=== PATIENT | male | born 1960 | race Caucasian/White ===

== ENCOUNTER 2018-01-19 06:54 | Outpatient (CLI) | payer OTHER ==
[2018-01-19] MEDS ORDERED: IOPAMIDOL-300 100 ML VIAL ONE (07:47)
[2018-01-19] MEDS ORDERED: IOPAMIDOL-300 100 ML VIAL IVP ONE (09:50)
--- NOTE | 2018-01-19 09:52 | CT Report ---
CT CHEST WITH CONTRAST: 01/19/2018 CLINICAL INDICATION: COPD. TECHNIQUE: Axial CT images of the chest were obtained with 80 mL Isovue 300 intravenously. COMPARISON: No previous CT is available for comparison. FINDINGS: The heart and great vessels are unremarkable. No hilar or mediastinal lymphadenopathy is appreciated. The lungs are clear. No effusion or pneumothorax is seen. No bronchiectasis is appreciated. No effusion or pneumothorax is present. Limited evaluation of upper abdominal structures demonstrates normal adrenal glands. Osseous structures demonstrate degenerative changes. IMPRESSION: NORMAL CT OF THE CHEST WITH CONTRAST. CT DOSE REDUCTION STATEMENT In accordance with CT protocol optimization, one or more of the following dose reduction techniques were utilized for this exam: automated exposure control, adjustment of mA and/or KV based on patient size, or use of iterative reconstructive technique. TD: 01/19/2018 09:51
== END 2018-01-19 06:55 | disposition home or self-care (01) ==
LOC: DI 06:54
PROVIDERS: ATTEND Hospitalist
DX: J44.9 Chronic obstructive pulmonary disease, unspecified (principal)
CPT/HCPCS: 71260; Q9967

== ENCOUNTER 2019-09-22 10:52 | Outpatient (CLI) | payer OTHER ==
[2019-09-22] MEDS ORDERED: REGADENOSON 0.4 MG/5 ML SYRINGE IVP ONE ×2 (12:40→14:56)
[2019-09-22] MEDS ORDERED: AMINOPHYLLINE 250 MG/10 ML VIAL ONE (12:41)
--- NOTE | 2019-09-22 15:46 | Nuclear Medicine Report ---
Reason: DYSNEA ON EXERTION Procedure Date: 09/22/2019 Accession Number: [id number] / [id number] Procedure: NM - Myocardial Perfusion STR/RST CPT Code: Final Report FULL RESULT: EXAM: MYOCARDIAL PERFUSION STRESS AND REST EXAM DATE: 09/22/2019 03:12 PM. CLINICAL HISTORY: Dyspnea on exertion. COMPARISON: CHEST W/ 01/19/2018 8:06 AM. TECHNIQUE: Patient given 9 mCi technetium 99m sestamibi IV for the rest portion of the study. Non-gated cardiac SPECT scintigraphy of the heart performed with multiplanar reformats. After an appropriate delay, patient given 0.4 mg Lexiscan for pharmacologic stress. Next, the patient given 42.6 mCi technetium 99m sestamibi IV. Cardiac gated SPECT scintigraphy performed of the heart with multiplanar reformats, wall motion analysis, and left ventricular ejection fraction estimation. FINDINGS: There is a large focus marked decreased activity in the apex, fixed on stress and rest. There is a large region of moderate decreased activity in the septum, fixed on stress and rest. No significant reversible changes are seen. There is moderate septal hypokinesis and apical akinesis. Left ventricular ejection fraction estimated at 50%. IMPRESSION: 1. 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 2. Septal hypokinesis and apical akinesis. 3. Left ventricular ejection fraction estimated at 50%. 4. No reversible ischemia seen. RADIA
--- NOTE | 2019-09-22 16:49 | CARDIAC PROCEDURE NOTE ---
DATE OF SERVICE: 09/22/2019 Physician: Marlene Carty MD, [facility] INDICATION: Dyspnea on exertion. CARDIAC RISK FACTORS: Male gender, obesity, hypertension, hyperlipidemia, ex- smoker. PROCEDURE: After signing informed consent, the patient underwent a Lexiscan pharmaceutical stress test with nuclear myocardial perfusion imaging. RESTING HEART RATE: 74. PEAK HEART RATE: 109. RESTING BLOOD PRESSURE: 137/74. PEAK BLOOD PRESSURE: 166/80. Lexiscan was infused per protocol. The patient developed flushing, a brief headache, brief shortness of breath, no chest pain or nausea. Oxyf=gen saturation was >97% on room air throughout the test. RESTING EKG: Normal sinus rhythm, left bundle branch block. EKG AT PEAK: Persistent left bundle branch block, unable to comment on ST segments or T waves therefore. SUMMARY 1. Abnormal resting EKG with findings of left bundle branch block. 2. Cannot comment on ischemic changes in the presence of left bundle branch block, during this pharmaceutical stress test. 3. The patient did have brief shortness of breath during pharmaceutical testing. 4. Nuclear images reported separately. cc: Jaylen Monterroso MD TD: 09/22/2019 16:25 MTDD
== END 2019-09-22 10:53 | disposition home or self-care (01) ==
LOC: DI 10:52
PROVIDERS: ATTEND Internal Medicine
DX: R07.9 Chest pain, unspecified (principal); R06.09 Other forms of dyspnea; I44.7 Left bundle-branch block, unspecified
CPT/HCPCS: 78452; 93017; A9500; J2785

== ENCOUNTER 2019-10-04 14:31 | Emergency (ER) | payer OTHER ==
[2019-10-04 14:56] LABS: BASOPHILS % (AUTO) 0.5 %; EOSINOPHILS # (AUTO) 0.1 10^3/uL (0.0-0.7); EOSINOPHILS % (AUTO) 1.7 %; HGB - HEMOGLOBIN 13.2 g/dL (14.0-18.0); LYMPHOCYTES # (AUTO) 1.1 10^3/uL (1.5-3.5); LYMPHOCYTES % (AUTO) 13.5 %; MEAN CORPUSCULAR HEMOGLOBIN 30.6 pg (27.0-31.0); MEAN CORPUSCULAR HGB CONC 33.1 g/dL (32.0-36.0); MEAN CORPUSCULAR VOLUME 92.4 fL (80.0-94.0); MONOCYTES # (AUTO) 0.4 10^3/uL (0.0-1.0); MONOCYTES % (AUTO) 5.3 %; NEUTROPHILS # (AUTO) 6.4 10^3/uL (1.5-6.6); NEUTROPHILS % (AUTO) 78.3 %; PLT - PLATELET COUNT 201 10^3/uL (130-450); RED BLOOD COUNT 4.32 10^6/uL (4.70-6.10); WHITE BLOOD COUNT 8.2 x10^3/uL (4.8-10.8)
[2019-10-04 15:15] LABS: ALBUMIN 4.4 g/dL (3.2-5.5); ALBUMIN/GLOBULIN RATIO 1.6 (1.0-2.2); BILIRUBIN,TOTAL 0.8 mg/dL (0.2-1.0); CALCIUM 9.5 mg/dL (8.5-10.3); TOTAL PROTEIN 7.2 g/dL (6.7-8.2)
--- NOTE | 2019-10-04 15:16 | XRAY Report ---
Reason: dyspnea Procedure Date: 10/04/2019 Accession Number: [id number] / [id number] Procedure: XR - Chest 2 View X-Ray CPT Code: 03747 Final Report FULL RESULT: EXAM: CHEST RADIOGRAPHY EXAM DATE: 10/04/2019 02:50 PM. CLINICAL HISTORY: Dyspnea. COMPARISON: CHEST 2 VIEW PA/LAT 12/14/2015 11:36 AM. TECHNIQUE: 2 views. FINDINGS: Lungs/Pleura: Chronic hyperexpansion with flattened diaphragm and coarse lung markings typical for COPD. No localized infiltrate, consolidation, effusion, or pneumothorax. Mediastinum: Heart and mediastinal contours are unremarkable. Upper lobe vessels not distended. Other: Degenerative changes. IMPRESSION: No acute disease. RADIA
--- NOTE | 2019-10-04 15:31 | ED Physician Documentation ---
PD HPI URI - Stated complaint Stated Complaint: SOA - Chief complaint Chief Complaint: Resp - History obtained from History obtained from: Patient (59-year-old gentleman with his history of COPD who for the last 6 months has had daily productive cough with green sputum and shortness of breath. No fevers. He has been short of breath. No pedal edema.) Review of Systems Constitutional: denies: Fever, Chills Cardiac: denies: Chest pain / pressure Respiratory: reports: Dyspnea, Cough, Wheezing PD PAST MEDICAL HISTORY - Past Medical History Cardiovascular: Hypertension, High cholesterol GI: GERD - Past Surgical History Past Surgical History: No - Present Medications Home Medications: Ambulatory Orders Medication Instructions Recorded Confirmed Albuterol Sulf [Ventolin Hfa 2 puffs INH Q4HR #1 inhaler 12/14/15 Inhaler] Inhaler, Assist Devices [Aerovent 1 each MC Q4HR PRN #1 spacer 12/14/15 Plus] Azithromycin [Zithromax] 1 tab PO DAILY #6 tablet 10/04/19 predniSONE [Deltasone] 60 mg PO DAILY 5 Days #15 tablet 10/04/19 - Allergies Allergies/Adverse Reactions: Allergies Allergy/AdvReac Type Severity Reaction Status Date / Time Penicillins Allergy Anaphylaxis Verified 10/04/19 14:40 - Social History Does the pt smoke?: No Smoking Status: Never smoker Does the pt drink ETOH?: No Does the pt have substance abuse?: No - Immunizations Immunizations are current?: Yes - POLST Patient has POLST: No PD ED PE NORMAL - Vitals Vital signs reviewed: Yes - General General: Alert and oriented X 3, No acute distress - HEENT HEENT: PERRL, EOMI - Neck Neck: Supple, no meningeal sign, No bony TTP - Cardiac Cardiac: RRR, No murmur - Respiratory Respiratory: No respiratory distress, Other (Mild rhonchi at the bases, nonlabored without active wheezing.) - Abdomen Abdomen: Non tender - Extremities Extremities: No edema, No calf tenderness / cord - Neuro Neuro: Alert and oriented X 3, Normal speech Results - Vitals Vitals: Vital Signs - 24 hr 10/04/19 14:35 Temperature 37.2 C Heart Rate 104 H Respiratory 18 Rate Blood Pressure 148/86 H O2 Saturation 95 Oxygen O2 Source Room air - EKG (time done) 1455 Rate: Rate (enter#) (91) Rhythm: NSR Intervals: LBBB Compare to prior EKG: Unchanged from prior EKG (Per stress test report dated 09/22/2019 the left bundle branch block is old) Computer interpretation: Agree with computer - Labs Labs: Laboratory Tests 10/04/19 10/04/19 10/04/19 14:50 14:50 14:50 WBC 8.2 RBC 4.32 L Hgb 13.2 L Hct 39.9 L MCV 92.4 MCH 30.6 MCHC 33.1 RDW 13.0 Plt Count 201 MPV 10.0 Neut # (Auto) 6.4 Lymph # (Auto) 1.1 L [place] # (Auto) 0.4 Eos # (Auto) 0.1 Baso # (Auto) 0.0 Absolute Nucleated RBC 0.00 Nucleated RBC % 0.0 D-Dimer 241.5 Sodium 140 Potassium 4.0 Chloride 103 Carbon Dioxide 26 Anion Gap 11.0 BUN 18 Creatinine 1.0 Estimated GFR (MDRD) 77 L Glucose 110 H Calcium 9.5 Total Bilirubin 0.8 AST 26 ALT 41 Alkaline Phosphatase 45 Troponin I High Sens Total Protein 7.2 Albumin 4.4 Globulin 2.8 Albumin/Globulin Ratio 1.6 Lipase 46 10/04/19 14:54 WBC RBC Hgb Hct MCV MCH MCHC RDW Plt Count MPV Neut # (Auto) Lymph # (Auto) [place] # (Auto) Eos # (Auto) Baso # (Auto) Absolute Nucleated RBC Nucleated RBC % D-Dimer Sodium Potassium Chloride Carbon Dioxide Anion Gap BUN Creatinine Estimated GFR (MDRD) Glucose Calcium Total Bilirubin AST ALT Alkaline Phosphatase Troponin I High Sens 14.3 Total Protein Albumin Globulin Albumin/Globulin Ratio Lipase - Rads (name of study) 2v chest Radiology: EMP read contemporaneously (NAD) PD MEDICAL DECISION MAKING - ED course ED course: 59-year-old gentleman with known COPD presents with what sounds like a longstanding exacerbation of same, he is already taking inhalers, will trial some antibiotics and steroids as well. Departure - Departure Disposition: 01 Home, Self Care Clinical Impression: Acute exacerbation of chronic bronchitis Condition: Good Record reviewed to determine appropriate education?: Yes Instructions: ED Bronchitis Asthmatic Prescriptions: Azithromycin [Zithromax] 1 tab PO DAILY #6 tablet predniSONE [Deltasone] 60 mg PO DAILY 5 Days #15 tablet Comments: Call your doctor to arrange a follow-up appointment, make the next available appointment. In the interim, return anytime if worse or if new symptoms develop. Your blood pressure was elevated today on check into the emergency department. This does not mean that you have hypertension, it is a common phenomenon to come to the emergency department and have elevated blood pressure. I recommend that you see your primary care physician within the week to have it rechecked when you are feeling better.
[2019-10-04 15:56] VITALS: BP 153/84
== END 2019-10-04 15:55 | disposition home or self-care (01) ==
LOC: ED 14:31
DX: J44.1 Chronic obstructive pulmonary disease with (acute) exacerbation (principal); I10 Essential (primary) hypertension; I44.7 Left bundle-branch block, unspecified
CPT/HCPCS: 36415; 71046; 80053; 83690; 83880; 84484; 85025; 85379; 93005; 99283; 99284

== ENCOUNTER 2020-12-01 16:16 | Emergency (ER) | payer OTHER ==
[2020-12-01] MEDS ORDERED: BUFFERED LIDOCAINE 10 ML SYRINGE SUBQ STA (16:30)
--- NOTE | 2020-12-01 16:30 | ED Physician Documentation ---
PD HPI UPPER EXT INJURY - Stated complaint Stated Complaint: right finger injury - Chief complaint Chief Complaint: Laceration - History obtained from History obtained from: Patient - History of Present Illness Location: Right, Hand Type of injury: Blunt / blow Where injury occurred: Work Timing - onset: Enter time (0800), Today Timing - duration: Hours Timing - details: Abrupt onset, Still present Improved by: Rest, Immobilization Worsened by: Moving, Palpating Associated symptoms: No: Weakness, Numbness, Tingling Contributing factors: No: Anticoagulated Similar symptoms before: Diagnosis (laceration) Recently seen: Not recently seen - Additonal information Additional information: 60-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 He has a laceration to the hand at the metacarpal phalangeal joint of the fourth digit on the right hand. He is able to move his fingers and a full range of motion has normal sensation distally. He is here for repair. Review of Systems Constitutional: denies: Fever Respiratory: denies: Cough GI: denies: Vomiting Skin: reports: Laceration (s) Musculoskeletal: reports: Extremity pain. denies: Neck pain, Back pain Neurologic: denies: Generalized weakness, Focal weakness, Numbness PD PAST MEDICAL HISTORY - Past Medical History Cardiovascular: Hypertension, High cholesterol Respiratory: Asthma, COPD GI: GERD - Past Surgical History Past Surgical History: No - Present Medications Home Medications: Ambulatory Orders Medication Instructions Recorded Confirmed Albuterol Sulf [Ventolin Hfa 2 puffs INH Q4HR #1 inhaler 12/14/15 Inhaler] Inhaler, Assist Devices [Aerovent 1 each MC Q4HR PRN #1 spacer 12/14/15 Plus] Azithromycin [Zithromax] 1 tab PO DAILY #6 tablet 10/04/19 predniSONE [Deltasone] 60 mg PO DAILY 5 Days #15 tablet 10/04/19 - Allergies Allergies/Adverse Reactions: Allergies Allergy/AdvReac Type Severity Reaction Status Date / Time Penicillins Allergy Anaphylaxis Verified 12/01/20 16:28 - Social History Does the pt smoke?: No Smoking Status: Never smoker Does the pt drink ETOH?: No Does the pt have substance abuse?: No - Immunizations Immunizations are current?: Yes - POLST Patient has POLST: No PD ED PE NORMAL - Vitals Vital signs reviewed: Yes (hypertensive ) - General General: Alert and oriented X 3, No acute distress, Well developed/nourished - HEENT HEENT: Atraumatic, PERRL, EOMI - Respiratory Respiratory: No respiratory distress - Derm Derm: Normal color, Warm and dry, No rash - Extremities Extremities: No deformity, No edema, Other (over the palmar surface of the MCP junction the tissue is torn and there is avulsed tissue as well. There is a central portion of the laceration that penetrates the dermis entirely. There is no FB in the wound. ) - Neuro Neuro: Alert and oriented X 3, medical anthropology director 2-12 intact, No motor deficit, No sensory deficit, Normal speech Eye Opening: Spontaneous Motor: Obeys Commands Verbal: Oriented GCS Score: 15 - Psych Psych: Normal mood, Normal affect Results - Vitals Vitals: Vital Signs - 24 hr 12/01/20 16:23 Temperature 36.7 C Heart Rate 97 Respiratory 22 Rate Blood Pressure 138/75 H O2 Saturation 99 Oxygen O2 Source Room air Procedures - Laceration (location) right hand Length in cm: 2.5 Wound type: Stellate, Irregular, Flap, Superficial, Clean Neurovascular status: Sensory intact, Motor intact, Vascular intact Tendon involvement: Tendon intact Anesthesia: Lidocaine 1%, With bicarb, Volume - enter ml (4) Wound preparation: Hibiclens, Irrigated copiously NS, Wound explored, To the base, Multiple flaps aligned Skin layer closure: Nylon, Dermabond, Interrupted, Size #-0 - enter number (5- 0), Sutures - enter # (3) Other: Patient tolerated well, No complications, Neurovascular intact, Dressing applied, Tetanus UTD PD MEDICAL DECISION MAKING - ED course Complexity details: reviewed old records, considered differential, d/w patient ED course: 60 y/o male with a laceration to the mcp joint of the right hand. There is a ahmadi perficial piece of skin that partially covers the wound and this is sutured over and the remainder of the laceration is covered with dermabond. Departure - Departure Disposition: 01 Home, Self Care Clinical Impression: Laceration of hand Qualifiers: Encounter type: initial encounter Foreign body presence: without foreign body Laterality: right Qualified Code(s): S61.411A - Laceration without foreign body of right hand, initial encounter Condition: Stable Instructions: ED Laceration Hand, ED Laceration Ext Skin Glue Follow-Up: VIRGINIA GLYNN MD [Primary Care Provider] - Comments: sutures should be removed in 7-10 days.
[2020-12-01 17:16] VITALS: BP 144/74
== END 2020-12-01 17:15 | disposition home or self-care (01) ==
LOC: ED 16:16
DX: S61.214A Laceration without foreign body of right ring finger without damage to nail, initial encounter (principal); W31.82XA Contact with other commercial machinery, initial encounter; Y99.0 Civilian activity done for income or pay; I10 Essential (primary) hypertension
CPT/HCPCS: 1040M; 12001; 99281; 99282

== ENCOUNTER 2020-12-21 15:54 | Outpatient (CLI) | payer OTHER ==
[2020-12-21 16:38] VITALS: BP 155/77
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
== END 2020-12-21 15:55 | disposition home or self-care (01) ==
LOC: SC 15:54
PROVIDERS: ATTEND Nurse Practitioner Family
DX: G47.10 Hypersomnia, unspecified (principal); R41.89 Other symptoms and signs involving cognitive functions and awareness; G47.8 Other sleep disorders; R51.9 Headache, unspecified; R06.83 Snoring; E66.01 Morbid (severe) obesity due to excess calories; Z68.41 Body mass index [BMI] 40.0-44.9, adult
CPT/HCPCS: 99203; 99212

== ENCOUNTER 2020-12-27 14:12 | Outpatient (CLI) | payer OTHER | END 2020-12-27 14:13 | disposition home or self-care (01) | LOC: SC 14:12 | PROVIDERS: ATTEND Nurse Practitioner Family | DX: G47.33 Obstructive sleep apnea (adult) (pediatric) (principal); R09.02 Hypoxemia | CPT/HCPCS: 95806 ==

== ENCOUNTER 2021-01-04 14:50 | Outpatient (CLI) | payer OTHER ==
--- NOTE | 2021-01-04 15:13 | SLEEP CARE CONSULTATION ---
Information from patient questionnaire entered by Roman Walters. I have reviewed and concur with the information entered by Roman Walters. This document represents the service I personally performed and the decisions made by me, Dena Pinedo ARNP. History of Present Illness Service Date and Time: 01/04/2021 1450 Initial [place] Sleepiness Scale score: 9 (in 2020) Current [place] Sleepiness Scale score: 9 Additional HPI information: GALILEA MALIN returns for follow up and results of the recently performed home sleep study. I explained the pathophysiology behind obstructive sleep apnea. We then spent quite a bit of time discussing different treatment options. For mild obstructive sleep apnea, surgery and oral appliance are alternatives to nasal CPAP therapy but in moderate or severe cases, nasal CPAP is the most effective and reliable treatment. After some discussion, the patient opted to go with the nasal CPAP therapy. Nasal autoCPAP set at 4-15 cmH20 will be ordered with rationale explained. A manual titration study will be ordered if unable to find optimal pressure with office adjustments. I explained how CPAP machine works with sample devices Teklatech Dreamstation and BMdr [id number] and what to expect when using the machine. Using CPAP every night in order to get used to it was emphasized. Patient advised to put CPAP mask on before getting into bed so as not to fall asleep without CPAP. To assist acclimation to CPAP use, it could also be used for a short time during day while reading or watching TV. The patient was instructed to call the CPAP supplier to discuss any mechanical problem that may occur. If the mask given is uncomfortable or is difficult to keep on through the night even with adjustment, contact the CPAP supplier as many will replace with another mask style if notified before 30 days. If snoring or perceives is not getting enough air or too much air from the machine, notify this office. AASM patient education PAP tips reviewed and given to patient. Patient counseled not drink alcohol less than 4 hours before bedtime as it can increase snoring and apnea. Patient was cautioned about risks of drowsy driving until sleepiness symptoms resolve. Sleep Study - Results Type of Sleep Study: Home sleep study Prior sleep studies: Yes Year and Where: 2020 and 2010 [facility] Polysomnography/Home Sleep Study results: Physician Impression: The quality of the study is good. The length of the study is adequate (> 240 minutes). Please also see the tabulated and graphic data. 1. Obstructive Sleep Apnea-Hypopnea (ICD-10 G47.33), mild, with an AHI of 14.0 /hr and miquel SaO2 of 80%. During the study, the patient had 66 apneas (66 obstructive, 0 central, 0 mixed) and 62 hypopneas. The longest episode lasted 61.5 seconds. The respiratory events occurred slightly more frequently during supine sleep (supine AHI was 16.6 and non-supine, 13.90). 2. Hypoxemia (ICD-10 R09.02), mild, with the lowest oxygen saturation of 80 % and 9.0 minutes with SaO2 under 90%. Baseline oxygen saturation was normal (Average oxygen saturation was 93%). Allergies and Home Medications Home medication list reviewed: Yes (no changes) Review of Systems Review of systems same as previous: Yes (no changes) Physical Exam Heart Rate: 79 O2 Saturation: 95 Height: 5 ft 7 in Weight: 262 lb Body Mass Index: 41.0 BMI Classification: Morbidly Obese Impression and Plan 1. Obstructive Sleep Apnea-Hypopnea Syndrome, mild, with lowest oxygen saturation of 80%. Obviously this is the cause of the patients symptoms of unrefreshed sleep, and excessive daytime sleepiness. Positive pressure therapy could benefit hypertension, arrhythmia and gastric reflux. As mentioned above, the patient will be started on nasal autoCPAP therapy with pressure set at 4-15 cmH2O. A manual titration study will be completed if unable to find optimal treatment pressure with office adjustments. Compliance guidelines also reviewed. A copy of compliance guidelines will be given for reference at check out. * Nasal auto CPAP therapy, pressure at 4-15 cm H2O. * Attempt to lose weight. * Avoid alcohol consumption near bedtime. * Avoid supine sleep until using CPAP. * The patient is again cautioned about driving until sleepiness completely resolves. * Return one month after CPAP obtained. I will assess response to therapy and compliance at that time. Counseling Topics: Weight loss health impact Visit Type: In Office Time Spent with Patient (minutes): 20 Provider Statement: I spent 100% of the Face to Face Visit with the patient with greater than 50% spent counseling the patient and coordination of care.
== END 2021-01-04 14:51 | disposition home or self-care (01) ==
LOC: SC 14:50
PROVIDERS: ATTEND Nurse Practitioner Family
DX: G47.33 Obstructive sleep apnea (adult) (pediatric) (principal); E66.01 Morbid (severe) obesity due to excess calories; Z68.41 Body mass index [BMI] 40.0-44.9, adult
CPT/HCPCS: 99212; 99213

== ENCOUNTER 2021-02-28 15:23 | Outpatient (CLI) | payer OTHER ==
--- NOTE | 2021-02-28 15:54 | SLEEP CARE CONSULTATION ---
Information from patient questionnaire entered by Sarah Da Silva. I have reviewed and concur with the information entered by Sarah Da Silva. This document represents the service I personally performed and the decisions made by , Dena Pinedo ARNP. History of Present Illness Service Date and Time: 02/28/2021 1523 Previous diagnosis: Mild, Obstructive Sleep Apnea-Hypopnea Syndrome AHI: 14 (in 2020) Reason for follow up: first compliance Equipment type: CPAP Equipment obtained from: Other ([place]; received initial supplies) Mask style: Full face Backup mask available: No (will keep old mask when replaced) Last cushion change: 1 month Prior sleep studies: Yes Year and Where: 2020 and 2010 [facility] Type of Sleep Study: Home sleep study HPI additional information: GALILEA MALIN was diagnosed to have mild, AHI 14, obstructive sleep apnea- hypopnea syndrome and returned today for CPAP therapy first compliance follow- up. CPAP Compliance Data - Data Reviewed with Patient Average duration of nightly device use: 6 hr 49 min Compliance rate %: 87 Current pressure setting (cmH2O): 4-15 (median 4.5, avg 6.3, max 7.3) Average residual AHI: 5.3 Subjective Patient concerns: reports: mask discomfort (not liking the full face mask, not fitting well and he takes off early in morning due to discomfort), dry mouth, nose, throat. denies: aerophagia, air blowing in eyes, mask leak noise, condensation in mask/hose, nasal congestion, epistaxis, other Observed to snore while using device: No Current pressure setting perceived as: comfortable On therapy, patient: reports: sleeping better, awakening more refreshed, being more awake and alert during the day, more rested overall. denies: drowsiness while driving Initial [place] Sleepiness Scale score: 9 (in 2020)(2 in 2010) Current [place] Sleepiness Scale score: 4 Allergies and Home Medications Home medication list reviewed: Yes (no new meds) Review of Systems Review of systems same as previous: Yes (no changes) Physical Exam Heart Rate: 104 (in pain, threw back out) O2 Saturation: 98 Height: 5 ft 7 in Weight: 269 lb Body Mass Index: 42.1 BMI Classification: Morbidly Obese Impression and Plan 1. Obstructive Sleep Apnea-Hypopnea Syndrome, mild, with good treatment compliance and fair apnea control with minimal residual elevation of AHI. On CPAP therapy, the patient has better sleep quality and is more rested overall. He has had issues with the full face mask he was sent. The DME did not fit his mask, they sent him the mask and it just does not fit well, leaks and is uncomfortable. He would like to try the over the nose Wisp type mask. I will w rite for him to change to a nasal mask. He has also had some mouth dryness with using the machine. Oral dryness can be reduced by adjusting humidity setting higher or heated hose lower or by adjusting both settings. He has increased his humidity setting and the dryness has reduced some. The patients pressure will be changed to autoCPAP [5-7] cmH20 for elevation of residual AHI and to reflect pressures he has been using. Patient advised to contact me if pressure change is uncomfortable so that it can be adjusted. Goals for apnea control discussed. Patient's apnea severity and rationale for treatment to reduce apnea, improve sleep quality and reduce cardiovascular and cerebrovascular events was reviewed. I also reviewed the benefit of consistent device use of CPAP for hypertension, arrhythmia, and gastric reflux. * Change auto CPAP pressure to 5-7 cmH2O * Change to a nasal mask, mask refitting * Notify me if snoring with mask or feeling that the pressure is too much or too little * Attempt to lose weight * Call this office if any problems using CPAP * Return for follow up in 1-2 months, or sooner if concerns arise Counseling Topics: Spare mask, Weight loss health impact Visit Type: In Office Time Spent with Patient (minutes): 27 Provider Statement: I spent 100% of the Face to Face Visit with the patient with greater than 50% spent counseling the patient and coordination of care.
== END 2021-02-28 15:24 | disposition home or self-care (01) ==
LOC: SC 15:23
PROVIDERS: ATTEND Nurse Practitioner Family
DX: G47.33 Obstructive sleep apnea (adult) (pediatric) (principal); E66.01 Morbid (severe) obesity due to excess calories; Z68.41 Body mass index [BMI] 40.0-44.9, adult
CPT/HCPCS: 99212; 99213

== ENCOUNTER 2023-09-29 09:30 | Outpatient (CLI) | payer OTHER ==
--- NOTE | 2023-09-29 11:55 | XRAY Report ---
PROCEDURE: Chest 2 View X-Ray INDICATIONS: ASTHMA EXACERBATION TECHNIQUE: 2 views of the chest were acquired. COMPARISON: CXR 10/04/2019. FINDINGS: Surgical changes and devices: None. Lungs and pleura: No pleural effusions or pneumothorax. Lungs are clear. Mediastinum: Mediastinal contours appear normal. Heart size is normal. Bones and chest wall: No suspicious bony lesions. Overlying soft tissues appear unremarkable. IMPRESSION: No acute cardiopulmonary process. Reviewed by: Duane Henao MD on 09/29/2023 11:53 AM [facility] Approved by: Duane Henao MD on 09/29/2023 11:53 AM [facility] Station ID: [id number]
== END 2023-09-29 09:45 | disposition home or self-care (01) ==
LOC: DI.N 09:30
PROVIDERS: ATTEND Physician Assistant Medical
DX: J45.901 Unspecified asthma with (acute) exacerbation (principal)

== ENCOUNTER 2023-10-31 09:08 | Emergency (ER) | payer OTHER ==
[2023-10-31 09:25] VITALS: BP 152/66; O2SAT 98
--- NOTE | 2023-10-31 09:43 | XRAY Report ---
PROCEDURE: Shoulder 2+V RT INDICATIONS: pain TECHNIQUE: 3 views of the shoulder were acquired. COMPARISON: None. FINDINGS: Bones: No fractures or dislocations. No suspicious bony lesions. Visualized ribs appear intact. AC joint hypertrophy with a moderate downward going component. Mild glenohumeral joint degenerative c hange. Soft tissues: No suspicious soft tissue calcifications. The visualized lungs are within normal limi ts. IMPRESSION: Degenerative change. No acute bony abnormality. If pain persists with conservative management, consid er repeat radiographs in 10-14 days or cross-sectional imaging. Reviewed by: Bhaskar Muniz MD on 10/31/2023 9:41 AM PST Approved by: Bhaskar Muniz MD on 10/31/2023 9:41 AM PST Station ID: [id number]
--- NOTE | 2023-10-31 11:05 | ED Physician Documentation ---
PD HPI UPPER EXT INJURY - Stated complaint Stated Complaint: RT SHOULDER INJ - Chief complaint Chief Complaint: Ext Problem - History obtained from History obtained from: Patient - Additonal information Additional information: Pt reports pain to R shoulder/neck region since 10/16/23 after carrying heavy, wet plywood and almost getting knocked over by the wind. He denies hitting his head. He has had pain to the region since which is worse as the day goes on. Reports feeling a lot of tightness at the end of the day. He did work for several days after the injury but with pain. He has had the last week off and it does feel better but still very tight and sore at the end of the day. Has tried OTC meds without improvement. He is supposed to resume work next week. No numbness. Review of Systems Constitutional: denies: Fever Cardiac: denies: Chest pain / pressure Respiratory: denies: Dyspnea GI: denies: Abdominal Pain Musculoskeletal: reports: Joint pain Neurologic: denies: Head injury PD PAST MEDICAL HISTORY - Past Medical History Past Medical History: Yes Cardiovascular: Hypertension, High cholesterol Respiratory: Asthma, COPD GI: GERD - Past Surgical History Past Surgical History: No - Present Medications Home Medications: Ambulatory Orders Medication Instructions Recorded Confirmed Albuterol Sulf [Ventolin Hfa 2 puffs INH Q4HR #1 inhaler 12/14/15 12/01/20 Inhaler] Inhaler, Assist Devices [Aerovent 1 each MC Q4HR PRN #1 spacer 12/14/15 12/01/20 Plus] Blood Pressure Med DAILY 12/01/20 Cholesterol Med DAILY 12/01/20 Omeprazole [PriLOSEC] 0 mg PO DAILY 12/01/20 12/01/20 Ciprofloxacin HCl [Cipro] 500 mg PO BID #10 tablet 05/05/22 HYDROcod/ACETAM 5/325 [[place] 5/325] 1 - 2 tab PO Q6H PRN #15 tablet 05/05/22 Cyclobenzaprine [Flexeril] 10 mg PO TID PRN #20 tablet 10/31/23 Ibuprofen [Motrin] 600 mg PO Q6H PRN #30 tab 10/31/23 Lidocaine Patch 5% [Lidoderm Patch] 1 patch TOP DAILY PRN #10 patch 10/31/23 - Allergies Allergies/Adverse Reactions: Allergies Allergy/AdvReac Type Severity Reaction Status Date / Time Penicillins Allergy Anaphylaxis Verified 05/05/22 11:36 - Social History Does the pt smoke?: No Smoking Status: Never smoker Does the pt drink ETOH?: No Does the pt have substance abuse?: No - Immunizations Immunizations are current?: Yes - POLST Patient has POLST: No PD ED PE NORMAL - General General: Alert and oriented X 3, No acute distress, Well developed/nourished - HEENT HEENT: Atraumatic, Moist mucous membranes, Pharynx benign - Neck Neck: Supple, no meningeal sign, No bony TTP - Cardiac Cardiac: RRR, Strong equal pulses - Respiratory Respiratory: No respiratory distress, Clear bilaterally - Extremities Extremities: No deformity, No edema, Other (Tenderness over R trapezius with muscle tightness noted; pain on ROM of R shoulder but able to abduct past 90 degrees and touch R hand to L shoulder as well as reach arm behind him; strength/sensation intact) - Neuro Neuro: Alert and oriented X 3, No motor deficit, No sensory deficit, Normal speech Results - Vitals Vitals: Vital Signs - 24 hr 10/31/23 09:20 Temperature 36.7 C Heart Rate 70 Respiratory 20 Rate Blood Pressure 152/66 H O2 Saturation 98 Oxygen O2 Source Room air PD Medical Decision Making - ED course Complexity details: reviewed results, re-evaluated patient, d/w patient ED course: Pt with R shoulder pain. Good ROM but does report pain. XR negative for fracture/dislocation. Neurovascularly intact. Muscle spasm/tightness noted on exam. Discussed trial of anti inflammatories, muscle relaxers, lidocaine patches and follow up with PCP. Pt declines sling. Pt counseled on concerning symptoms to return for. Departure - Departure Disposition: Home, Self Care Clinical Impression: Right shoulder injury Condition: Stable Instructions: ED Shoulder Pain [facility] Prescriptions: Cyclobenzaprine [Flexeril] 10 mg PO TID PRN #20 tablet PRN Reason: Spasms Lidocaine Patch 5% [Lidoderm Patch] 1 patch TOP DAILY PRN #10 patch PRN Reason: pain Ibuprofen [Motrin] 600 mg PO Q6H PRN #30 tab PRN Reason: Pain Comments: Abdirashid, your shoulder x-ray does not show signs of an injury such as a broken or dislocated bone. However there are other structures that could have been injured such as muscles and ligaments. I am sending prescriptions to help you with your symptoms to [facility] in [place] including a muscle relaxer. Please do not drive or operate machinery when taking the muscle relaxer as it can make you drowsy. Please have close follow-up with your primary care provider. I would recommend you continue to be on light duty for the next week with no lifting involving your right arm to see if this helps your symptoms. Return to the ER with any worsening. IMPRESSION: Degenerative change. No acute bony abnormality. If pain persists with conservative management, consider repeat radiographs in 10-14 days or cross-sectional imaging. Forms: PCP List Discharge Date/Time: 10/31/23 11:40
== END 2023-10-31 11:40 | disposition home or self-care (01) ==
LOC: ED 09:08
DX: S49.91XA Unspecified injury of right shoulder and upper arm, initial encounter (principal); X58.XXXA Exposure to other specified factors, initial encounter; Y99.0 Civilian activity done for income or pay; I10 Essential (primary) hypertension
CPT/HCPCS: 1040M; 73030; 99283

== ENCOUNTER 2024-01-08 11:07 | Outpatient (CLI) | payer OTHER ==
[2024-01-08] MEDS: ALBUTEROL 1 PUFF INH STA (17:37)
== END 2024-01-08 11:08 | disposition home or self-care (01) ==
LOC: RT 11:07
PROVIDERS: ATTEND Nurse Practitioner Acute Care
DX: J45.909 Unspecified asthma, uncomplicated (principal); Z87.891 Personal history of nicotine dependence
CPT/HCPCS: 94060; 94727; 94729

== ENCOUNTER 2024-05-31 08:51 | Emergency (ER) | payer OTHER ==
[2024-05-31 09:17] LABS: BASOPHILS % (AUTO) 0.5 %; EOSINOPHILS # (AUTO) 0.2 10^3/uL (0.0-0.7); EOSINOPHILS % (AUTO) 2.9 %; HCT - HEMATOCRIT 37.7 % (42.0-52.0); HGB - HEMOGLOBIN 11.9 g/dL (14.0-18.0); LYMPHOCYTES # (AUTO) 0.8 10^3/uL (1.5-3.5); LYMPHOCYTES % (AUTO) 14.3 %; MEAN CORPUSCULAR HGB CONC 31.6 g/dL (32.0-36.0); MEAN PLATELET VOLUME 10.2 fL (7.4-11.4); MONOCYTES # (AUTO) 0.4 10^3/uL (0.0-1.0); MONOCYTES % (AUTO) 6.5 %; NEUTROPHILS # (AUTO) 4.2 10^3/uL (1.5-6.6); NEUTROPHILS % (AUTO) 75.4 %; PLT - PLATELET COUNT 185 10^3/uL (130-450); RED BLOOD COUNT 3.97 10^6/uL (4.70-6.10); RED CELL DISTRIBUTION WIDTH 13.6 % (12.0-15.0); WHITE BLOOD COUNT 5.5 x10^3/uL (4.8-10.8)
--- NOTE | 2024-05-31 09:30 | XRAY Report ---
PROCEDURE: Chest 1V INDICATIONS: sob TECHNIQUE: One view of the chest was acquired. COMPARISON: 03/15/2024 FINDINGS: Surgical changes and devices: None. Lungs and pleura: Moderately diffuse interstitial prominence. No drainable effusions. Mediastinum: Similar borderline cardiomegaly. Bones and chest wall: Degenerative changes IMPRESSION: Moderate interstitial prominence is slightly increased, possibly edema or infection. Borderline cardi omegaly. Consider future imaging surveillance to assess for resolution. Reviewed by: Stewart Rankin MD on 05/31/2024 9:28 AM PDT Approved by: Stewart Rankin MD on 05/31/2024 9:28 AM PDT Station ID: [id number]
[2024-05-31 09:32] LABS: ALBUMIN 4.4 g/dL (3.2-5.5); ALBUMIN/GLOBULIN RATIO 2.1 (1.0-2.2); BILIRUBIN,TOTAL 0.7 mg/dL (0.2-1.0); CALCIUM 9.1 mg/dL (8.5-10.3); CREATININE 0.9 mg/dL (0.6-1.3); POTASSIUM 3.8 mmol/L (3.5-4.5); TOTAL PROTEIN 6.5 g/dL (6.4-8.9)
--- NOTE | 2024-05-31 09:58 | ED Physician Documentation ---
History of Present Illness - Stated complaint Stated Complaint: SWELLING SOA - Chief complaint Chief Complaint: Cardiac - History obtained from History obtained from: Patient - Additonal information Additional information: The patient comes to the emergency department chief complaint of shortness of breath increasing over the last approximately week and increased swelling in the face and lower legs. He states that he has a history of undefined lung disease and sees a mental health social worker for this. He is also seeing cardiology and states that a couple of years ago, they told him that his heart was "fine". He denies any chest pain. He has been coughing up copious yellow, thick sputum. He denies fevers. He states that he was trying to walk down the doctor the other day and had to stop several times to catch his breath. He is also gained 13 pounds in the last few weeks. He denies any known problems with his liver or kidneys. No other complaints at this time. PD PAST MEDICAL HISTORY - Past Medical History Cardiovascular: Hypertension, High cholesterol Respiratory: Asthma, COPD GI: GERD - Past Surgical History Past Surgical History: No - Present Medications Home Medications: Ambulatory Orders Medication Instructions Recorded Confirmed Albuterol Sulf [Ventolin Hfa 2 puffs INH Q4HR #1 inhaler 12/14/15 05/31/24 Inhaler] Inhaler, Assist Devices [Aerovent 1 each MC Q4HR PRN #1 spacer 12/14/15 05/31/24 Plus] Omeprazole [PriLOSEC] 20 mg PO DAILY 12/01/20 05/31/24 Ibuprofen [Motrin] 600 mg PO Q6H PRN #30 tab 10/31/23 05/31/24 Fluticasone Propion/Salmeterol 1 each IH BID 30 Days #1 each 03/15/24 05/31/24 [Advair 250-50 Diskus] Montelukast [Singulair] 10 mg PO QPM #30 tablet 03/15/24 05/31/24 Azithromycin [Zithromax] 0 mg PO DAILY #6 tablet 05/31/24 Furosemide [Lasix] 20 mg PO DAILY #10 tablet 05/31/24 Sacubitril/Valsartan [Entresto 24 1 tab PO DAILY 05/31/24 05/31/24 mg-26 mg Tablet] Salmeterol Xinafoate [Serevent 1 inh INH DAILY 05/31/24 05/31/24 Diskus] Simvastatin [Zocor] 1 tab PO DAILY 05/31/24 05/31/24 Spironolactone [Aldactone] 1 tab PO DAILY 05/31/24 05/31/24 carvediloL [Coreg] 20 mg INH DAILY 05/31/24 05/31/24 hydroCHLOROthiazide [Hydrodiuril] 1 tab PO DAILY 05/31/24 05/31/24 - Allergies Allergies/Adverse Reactions: Allergies Allergy/AdvReac Type Severity Reaction Status Date / Time Penicillins Allergy Anaphylaxis Verified 05/31/24 08:58 - Social History Does the pt smoke?: No Smoking Status: Never smoker Does the pt drink ETOH?: No Does the pt have substance abuse?: No - Immunizations Immunizations are current?: Yes - POLST Patient has POLST: No PD ED PE NORMAL - Vitals Vital signs reviewed: Yes - General General: Alert and oriented X 3, No acute distress, Well developed/nourished, Other (Obese) - HEENT HEENT: Atraumatic, PERRL, EOMI, Moist mucous membranes - Neck Neck: Supple, no meningeal sign - Cardiac Cardiac: RRR, No murmur - Respiratory Respiratory: No respiratory distress, Other (Fine crackles throughout lower half of lung dillard and rales noted in bases.) - Abdomen Abdomen: Soft, Non tender, Non distended - Derm Derm: Normal color, Warm and dry, No rash - Extremities Extremities: No deformity, Other (1+ pitting edema bilateral lower extremities) - Neuro Neuro: Alert and oriented X 3, Other (Grossly intact) - Psych Psych: Normal mood, Normal affect Results - Vitals Vitals: Oxygen O2 Source Room air - EKG (time done) 0936 EKG releavant findings:: EKG personally interpreted by author of this note. Relevant findings are: Rate: Rate (enter#) (62) Rhythm: NSR Ephraim: Normal Intervals: LBBB, Other (Short ME) QRS: Normal Ischemia: Normal ST segments Compare to prior EKG: Old EKG unavailable Computer interpretation: Agree with computer - Labs Labs: Laboratory Tests 05/31/24 05/31/24 05/31/24 09:11 09:11 09:11 WBC 5.5 RBC 3.97 L Hgb 11.9 L Hct 37.7 L MCV 95.0 H MCH 30.0 MCHC 31.6 L RDW 13.6 Plt Count 185 MPV 10.2 Neut # (Auto) 4.2 Lymph # (Auto) 0.8 L Scurry # (Auto) 0.4 Eos # (Auto) 0.2 Baso # (Auto) 0.0 Absolute Nucleated RBC 0.00 Nucleated RBC % 0.0 Sodium 140 Potassium 3.8 Chloride 107 Carbon Dioxide 25 Anion Gap 8.0 BUN 15 Creatinine 0.9 Estimated GFR (MDRD) 86 L Glucose 132 H Calcium 9.1 Total Bilirubin 0.7 AST 18 ALT 35 Alkaline Phosphatase 44 B-Natriuretic Peptide 403 H Total Protein 6.5 Albumin 4.4 Globulin 2.1 Albumin/Globulin Ratio 2.1 Lipase 24 PD Medical Decision Making - ED course Complexity details: reviewed old records, reviewed results, re-evaluated patient, considered differential, d/w patient ED course: The patient was worked up with labs, EKG, and chest x-ray. He was found to have an elevated BNP at 400 increased interstitial markings in his lungs consistent with possible edema. He also had borderline cardiomegaly. The patient had a normal white blood cell count was without infectious complaints other than coughing up some thick yellow sputum. I started him on Zithromax for this but did not feel he needed to be treated for pneumonia at this point in time. He will also be put on a temporary course of Lasix. We have discussed the need for follow-up with his primary doctor regarding his symptoms. We have also discussed the usual indications for return. Departure - Departure Disposition: 01 Home, Self Care Clinical Impression: Bronchitis Congestive heart failure Qualifiers: Heart failure type: unspecified Heart failure chronicity: acute on chronic Qualified Code(s): I50.9 - Heart failure, unspecified Condition: Stable Instructions: ED Upper Resp Infec Abx Tx, ED CHF General Prescriptions: Furosemide [Lasix] 20 mg PO DAILY #10 tablet Azithromycin [Zithromax] 0 mg PO DAILY #6 tablet Comments: Your labs show moderate elevation in the lab we checked for congestive heart failure and your chest x-ray does show a little bit of fluid in your lungs. Most likely you have some mild underlying congestive heart failure that has flared up. You do also have the thick yellow sputum coming up when you cough and this is also a consideration your shortness of breath. There is no evidence of pneumonia so I suspect you have a little bronchitis. This is much easier to get when you have underlying lung issues. For your congestive heart failure and fluid overload, we have given you a dose of a diuretic through the IV, and a prescription for a small daily dose for the next 10 days has been electronically transmitted to the [facility] pharmacy in [place] for you. I have also sent a prescription for a course of antibiotics for your bronchitis to the same pharmacy. Please pick these meds up today and begin taking them as directed tomorrow. Please make the next available appointment with your primary doctor to follow-up. Forms: PCP List Discharge Date/Time: 05/31/24 10:52
[2024-05-31] MEDS: FUROSEMIDE 40 MG/4 ML VIAL IVP STA (10:06)
[2024-05-31] MEDS: AZITHROMYCIN 250 MG TABLET PO STA (10:07)
[2024-05-31 11:07] VITALS: BP 132/87; O2SAT 98
== END 2024-05-31 10:52 | disposition home or self-care (01) ==
LOC: ED 08:51
DX: J40 Bronchitis, not specified as acute or chronic (principal); I11.0 Hypertensive heart disease with heart failure; I50.9 Heart failure, unspecified; E78.00 Pure hypercholesterolemia, unspecified; J44.9 Chronic obstructive pulmonary disease, unspecified; Z79.899 Other long term (current) drug therapy
CPT/HCPCS: 36415; 71045; 80053; 83690; 83880; 85025; 93005; 99284; A9270

== ENCOUNTER 2024-06-16 10:18 | Outpatient (CLI) | payer OTHER | END 2024-06-16 10:19 | disposition home or self-care (01) | LOC: DI 10:18 | PROVIDERS: ATTEND Internal Medicine Cardiovascular Disease | DX: R06.02 Shortness of breath (principal); I51.7 Cardiomegaly; I87.8 Other specified disorders of veins | CPT/HCPCS: 93307 ==